=== PATIENT | male | born 2000 | race Caucasian/White ===

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

== ENCOUNTER 2018-09-23 10:08 | Emergency (ER) | payer MEDICAID ==
[~2018-09-23] VITALS: Ht 185.4 cm; Wt 72.6 kg
[2018-09-23 10:15] VITALS: BP 131/65
== END 2018-09-23 10:57 | disposition home or self-care (01) ==
LOC: ER 10:08
DX: S62.502A Fracture of unspecified phalanx of left thumb, initial encounter for closed fracture (principal); V18.4XXA Pedal cycle driver injured in noncollision transport accident in traffic accident, initial encounter; Y93.89 Activity, other specified; Y99.8 Other external cause status; Y92.89 Other specified places as the place of occurrence of the external cause
CPT/HCPCS: 29125; 73130

== ENCOUNTER 2022-11-26 11:56 | Emergency (ER) | payer SELFPAY ==
[~2022-11-26] VITALS: Ht 185.4 cm; Wt 78.0 kg
[2022-11-26 13:00] VITALS: BP 112/62; PULSE 69; RESP 18; TEMP 97.6; O2SAT 100
== END 2022-11-26 13:30 | disposition home or self-care (01) ==
LOC: ER 11:56
DX: S61.211A Laceration without foreign body of left index finger without damage to nail, initial encounter (principal); W45.8XXA Other foreign body or object entering through skin, initial encounter; Y93.89 Activity, other specified; Y92.89 Other specified places as the place of occurrence of the external cause; Y99.8 Other external cause status
CPT/HCPCS: 12002